=== PATIENT | female | born 1970 | race Two or more races ===

== ENCOUNTER 2018-09-20 04:52 | Emergency (ER) | payer OTHER ==
--- NOTE | 2018-09-20 05:50 | EDM.PDOC ---
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 The divider crushed her right dorsum the hand approximately one half hour ago (0420)09/20/18 Treatments BURNISHER: Reports: Cold Therapy Right hand Pain Score (Numeric/FACES): 8 - Related Data Allergies Allergy/AdvReac Type Severity Reaction Status Date / Time bee venom protein (honey bee) Allergy Airway Verified 09/20/18 05:00 Tightness Penicillins Allergy Airway Verified 09/20/18 05:00 Tightness sumatriptan [From Imitrex] Allergy Airway Verified 09/20/18 05:00 Tightness Home Meds: Home Meds NK [No Known Home Meds] 09/20/18 [History] Past Medical History Cardiovascular History: Reports: Other (See Below) Other Cardiovascular History: "Faulty 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." Genitourinary History: Reports: UTI, Recurrent 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: , 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 History: Musculoskeletal History: Reports: Arthritis, Fibromyalgia Neurological History: Reports: Migraines Psychiatric History: Reports: Anxiety, Bipolar, Depression Endocrine/Metabolic History: Reports: Obesity/BMI 30+ - Past Surgical History GI Surgical History: Reports: Cholecystectomy Female Surgical History: Reports: Hysterectomy Social & Family History - Family History Family Medical History: Noncontributory - Tobacco Use Smoking Status *Q: Current Every Day Smoker Years of Tobacco use: 20 Packs/Tins Daily: 0.5 - Caffeine Use Caffeine Use: Reports: Coffee, Soda - Recreational Drug Use Recreational Drug Use: No Review of Systems - Review of Systems Review Of Systems: ROS reveals no pertinent complaints other than HPI. ED EXAM, GENERAL - Physical Exam Exam: See Below Free Text/Narrative:: Patient has moderate discomfort while swelling of soft tissue over the dorsal right second through fourth metatarsals. She has decreased range of motion fingers because of discomfort overlying these tendonous structures on the dorsum of her hand. Mild dysesthesia transient otherwise as slight decrease in feeling and also no compromise capillary refill. Exam Limited By: No Limitations General Appearance: Alert, Mild Distress Eye Exam: Bilateral Eye: Normal Inspection Ear Exam: Bilateral Ear: Other (Not checked) Throat/Mouth: Normal Inspection Head: Atraumatic, Normocephalic Respiratory/Chest: No Respiratory Distress, Lungs Clear, Normal Breath Sounds, No Accessory Muscle Use Cardiovascular: Normal Peripheral Pulses, Regular Rate, Rhythm, No Edema, No JVD , No Murmur, No Rub Peripheral Pulses: 1+: Radial (L), Radial (R) GI/Abdominal: Normal Bowel Sounds, Soft, Non-Tender (Female) Exam: Deferred Rectal (Female) Exam: Deferred Back Exam: Other (Not checked) Neurological: Alert, Oriented, CN II-XII Intact, Normal Cognition, Normal Gait, Normal Reflexes, No Motor/Sensory Deficits, Other (No sensory deficit fingers right hand) Psychiatric: Normal Affect, Normal Mood Skin Exam: Warm, Intact, Normal Color, Other (No crush injury noted right hand with mild swelling over the second third and fourth mid hand metacarpal soft tissue) Course - Vital Signs Last Recorded V/S: Last Vital Signs Temp 36.4 C 09/20/18 04:53 Pulse 81 09/20/18 05:03 Resp 18 09/20/18 05:03 BP 173/90 H 09/20/18 05:03 Pulse Ox 98 09/20/18 05:03 - Orders/Labs/Meds Orders: Active Orders 24 hr Category Date Time Status Hand Comp Min 3V Rt [CR] Stat Exams 09/20/18 05:15 Ordered Departure - Departure Time of Disposition: 05:30 (No evidence for x-ray fracture right dorsal hand mild soft tissue swelling. Probable Transient elevation of blood pressure secondary to patient's trauma and pain in the right hand. She'll be using Tylenol 1000 mg ibuprofen 600 mg every 6 hours. work restrictions not to lift more than 2-5 pounds with the right hand.use ice and elevate. Return earlier if worse. She is mildly obese. Obesity and current pain may contributor hypertension. She'll need further follow-up of her blood pressure) Disposition: Home, Self-Care 01 Condition: Good Clinical Impression: Contusion of hand, right Qualifiers: Encounter type: initial encounter Qualified Code(s): S60.221A - Contusion of right hand, initial encounter Hypertension Qualifiers: Hypertension type: unspecified Qualified Code(s): I10 - Essential (primary) hypertension - Discharge Information *PRESCRIPTION DRUG MONITORING PROGRAM REVIEWED*: Not Applicable *COPY OF PRESCRIPTION DRUG MONITORING REPORT IN PATIENT SIDNEY: Not Applicable Instructions: Hand Contusion, [id number] Referrals: PCP,None [Primary Care Provider] - Forms: ED Department Discharge Additional Instructions: Discharge workability forms workers reforms completed. For pain he use 1000 mg Tylenol and 600 mg ibuprofen every 6 hours. Use ice packs and elevate the hand above the heart to diminish the swelling. See her doctor in 5 days - My Orders Last 24 Hours: My Active Orders 09/20/18 05:15 Hand Comp Min 3V Rt [CR] Stat - Assessment/Plan Last 24 Hours: My Active Orders 09/20/18 05:15 Hand Comp Min 3V Rt [CR] Stat
--- NOTE | 2018-09-20 10:14 | CR ---
INDICATION: Injury--crushed by metal divider. Pain second and third digits MCP area. RIGHT HAND: Three views of the right hand were obtained and revealed no evidence of an acute fracture, dislocation, or other definite bone or joint abnormality. MTDD
== END 2018-09-20 05:50 | disposition home or self-care (01) ==
LOC: FB.ED 04:52
DX: S60.221A Contusion of right hand, initial encounter (principal); I10 Essential (primary) hypertension; F17.210 Nicotine dependence, cigarettes, uncomplicated; Z91.030 Bee allergy status; Z88.0 Allergy status to penicillin; Z88.8 Allergy status to other drugs, medicaments and biological substances; W20.8XXA Other cause of strike by thrown, projected or falling object, initial encounter; Y99.0 Civilian activity done for income or pay
CPT/HCPCS: 73130-RT; 99283

== ENCOUNTER 2019-08-09 01:01 | Emergency (ER) | payer MEDICAID ==
--- NOTE | 2019-08-09 01:52 | EDM.PDOC ---
ED HPI GENERAL MEDICAL PROBLEM - General Chief Complaint: Syncope Stated Complaint: FALL Time Seen by Provider: 08/09/19 01:10 Source of Information: Reports: Patient, EMS, Family History Limitations: Reports: No Limitations - History of Present Illness INITIAL COMMENTS - FREE TEXT/NARRATIVE: states harpreet got up about 11pm to go to the bathrok and felt dizzy heaviness in head and fell , passing out. curently fatigued feels she had urinted or had BM on herself states she had a seizure m, had had same in the past when BP is elevated she gets lightheaded and passes out and has headache no nausea or vomiitng noted now , but had and episode of vomiting at the time of seizure activity pt denies hitting her head Onset: Sudden Onset Date: 08/09/19 Duration: Constant Location: Reports: Head (has frontal headache ) Quality: Reports: Dull, Pressure Severity: Moderate Improves with: Reports: None Worsens with: Reports: None Associated Symptoms: Reports: Confusion, Headaches, Nausea/Vomiting, Syncope, Weakness - Related Data Allergies Allergy/AdvReac Type Severity Reaction Status Date / Time bee venom protein (honey bee) Allergy Airway Verified 09/20/18 05:00 Tightness Penicillins Allergy Airway Verified 09/20/18 05:00 Tightness sumatriptan [From Imitrex] Allergy Airway Verified 09/20/18 05:00 Tightness Home Meds: Home Meds NK [No Known Home Meds] 09/20/18 [History] Past Medical History Cardiovascular History: Reports: Other (See Below) Other Cardiovascular History: "Faulty 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." Genitourinary History: Reports: UTI, Recurrent 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: , 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 History: Musculoskeletal History: Reports: Arthritis, Fibromyalgia Neurological History: Reports: Migraines Psychiatric History: Reports: Anxiety, Bipolar, Depression Endocrine/Metabolic History: Reports: Obesity/BMI 30+ - Past Surgical History GI Surgical History: Reports: Cholecystectomy Female Surgical History: Reports: Hysterectomy Social & Family History - Family History Family Medical History: Noncontributory - Caffeine Use Caffeine Use: Reports: Coffee, Soda ED ROS GENERAL - Review of Systems Review Of Systems: See Below Constitutional: Reports: Weakness, Fatigue HEENT: Reports: No Symptoms Respiratory: Reports: No Symptoms Cardiovascular: Reports: No Symptoms Endocrine: Reports: No Symptoms GI/Abdominal: Reports: No Symptoms Musculoskeletal: Reports: Neck Pain, Muscle Stiffness Skin: Reports: No Symptoms Neurological: Reports: Dizziness, Headache, Seizure, Syncope, Weakness. Denies : Tremors, Trouble Speaking, Difficulty Walking, Change in Speech, Gait Disturbance Psychiatric: Reports: No Symptoms Hematologic/Lymphatic: Reports: No Symptoms Immunologic: Reports: No Symptoms - Physical Exam Exam: See Below Exam Limited By: No Limitations General Appearance: Alert, WD/WN, No Apparent Distress, Mild Distress Eye Exam: Bilateral Eye: EOMI, PERRL Ears: Normal External Exam, Normal TMs Nose: Normal Inspection, Normal Mucosa Throat/Mouth: Normal Inspection Head Exam: Atraumatic, Normocephalic Neck: Normal Inspection, Supple, Non-Tender, Full Range of Motion Respiratory/Chest: No Respiratory Distress, Lungs Clear Cardiovascular: Normal Peripheral Pulses Neuro Exam (Abbreviated): Alert, Oriented, CN II-XII Intact DTR: 1+: Patella (R), Patella (L) Back Exam: Normal Inspection Extremities: Normal Inspection Psychiatric: Normal Affect Skin Exam: Warm, Intact Course - Vital Signs Text/Narrative:: remained stable in Er Head CT done was negative , BP remained mildly elevated : pt not taking prescribed BP medication Last Recorded V/S: Last Vital Signs Temp 36.4 C 08/09/19 01:01 Pulse 71 08/09/19 01:01 Resp 18 08/09/19 01:01 BP 161/86 H 08/09/19 01:01 Pulse Ox 96 08/09/19 01:01 Departure - Departure Time of Disposition: 02:30 Disposition: Against Medical Advice 07 Clinical Impression: Syncope and collapse, Seizure Hypertension Qualifiers: Hypertension type: unspecified Qualified Code(s): I10 - Essential (primary) hypertension - Discharge Information *PRESCRIPTION DRUG MONITORING PROGRAM REVIEWED*: Not Applicable *COPY OF PRESCRIPTION DRUG MONITORING REPORT IN PATIENT SIDNEY: Not Applicable Instructions: Epilepsy, [id number], Preventing Hypertension, Hypertension, [id number], DASH Eating Plan Referrals: Yolis Melvin NP [Primary Care Provider] - Additional Instructions: Make appointment to see your PCP to change your BP medication You will need to see a Neurologist to assess for seizure disorder you will need a stress test for your heart : discuss with your doctor Sepsis Event Note - Evaluation Sepsis Screening Result: No Definite Risk - Focused Exam Vital Signs: Vital Signs Temp Pulse Resp BP Pulse Ox 08/09/19 01:01 36.4 C 71 18 161/86 H 96 Date Exam was Performed: 08/09/19 Time Exam was Performed: 01:29
== END 2019-08-09 02:38 | disposition home or self-care (01) ==
LOC: FB.ED 01:01
DX: R55 Syncope and collapse (principal); I10 Essential (primary) hypertension; E66.9 Obesity, unspecified; Z91.030 Bee allergy status; Z88.0 Allergy status to penicillin; Z88.8 Allergy status to other drugs, medicaments and biological substances; W19.XXXA Unspecified fall, initial encounter
CPT/HCPCS: 70450; 72125; 81003; 99285-25